=== PATIENT | male | born 1965 | race Caucasian/White ===

== ENCOUNTER 2024-04-30 13:41 | Emergency (ER) | payer BC ==
[~2024-04-30] VITALS: Ht 177.8 cm; Wt 118.0 kg
[2024-04-30] MEDS: cyclobenzaprine 10mg tablet PO ONE (14:19)
[2024-04-30] MEDS: ketorolac trometh 15mg/ml vial 15 MG/ML ML IM ONE (14:19)
[2024-04-30] MEDS: HYDROcodone/acetaminophen 10/325mg tab PO ONE (15:04)
[2024-04-30] MEDS ORDERED: CYCL-394 PO (15:42)
[2024-04-30] MEDS ORDERED: NAPR-56 PO (15:42)
[2024-04-30 15:55] VITALS: BP 143/86; PULSE 84; RESP 18; TEMP 97.7; O2SAT 97
== END 2024-04-30 15:57 | disposition home or self-care (01) ==
LOC: ER 13:41
DX: M54.31 Sciatica, right side (principal); M79.604 Pain in right leg; Z79.1 Long term (current) use of non-steroidal anti-inflammatories (NSAID)
CPT/HCPCS: 73502; 96372; 99283; J1885